=== PATIENT | female | born 1980 | race Caucasian/White ===

== ENCOUNTER 2016-09-20 15:57 | Emergency (ER) | payer OTHER ==
[~2016-09-20] VITALS: Ht 167.6 cm; Wt 85.6 kg
[2016-09-20] MEDS ORDERED: FLEXERIL10 MG PO (18:15)
[2016-09-20 18:35] VITALS: BP 141/91
== END 2016-09-20 18:41 | disposition home or self-care (01) ==
LOC: EME 15:57
DX: M79.604 Pain in right leg (principal); Z51.89 Encounter for other specified aftercare; K61.1 Rectal abscess; Z86.718 Personal history of other venous thrombosis and embolism; Z88.8 Allergy status to other drugs, medicaments and biological substances
CPT/HCPCS: 93971; 99281; 99284